=== PATIENT | male | born 1930 | race Caucasian/White ===

== ENCOUNTER 2019-05-05 19:28 | Emergency (ER) | payer MEDICARE ==
[~2019-05-05] VITALS: Ht 177.8 cm; Wt 72.6 kg
[2019-05-05 19:30] VITALS: BP 168/80
--- NOTE | 2019-05-05 19:30 | NUR ---
ED Nurse Note: pt brought in by ambulance from home for S/P fall about 40 min ago. pt has a bump and skin abrasion to right posterior head. pt also c/o buttocks pain.
--- NOTE | 2019-05-05 19:53 | Emergency Room Report ---
History of Present Illness General Chief Complaint: Multiple Trauma/Fall Source: Patient, Family Member Present Illness HPI Disclaimer: Please note that this report is being documented using DRAGON technology. This can lead to erroneous entry secondary to incorrect interpretation by the dictating instrument. HPI: 89-year-old male presents for evaluation of head injury after mechanical fall. Patient tripped over his slippers today falling backwards hitting the temporal portion of his head sustaining a hematoma. There is no loss of consciousness, denies dizziness, blurred vision, vomiting or seizure-like activity. He does not take blood thinners. He is complaining of some left- sided neck pain but does not limit his range of motion. Denies injury to the upper or lower extremities or torso. He has no other complaints at this time. Has not taken any medication prior to arrival. 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 There is a scalp hematoma over the right parietal region. No tenderness or soft tissue swelling over the facial bones. EOMI. PERRLA. No septal hematoma. No malocclusion CV: RRR. S1 and S2 normal. No murmur appreciated Resp: Normal work of breathing. No cough, wheezing or crackles appreciated Abd: Soft, nontender, nondistended Skin: Intact. No abrasions, laceration or rash over the exposed skin MSK: Normal tone and bulk. No obvious deformity. Moving all extremities. Ambulating without difficulty. Neuro: Awake and alert. Mentating appropriately. Sensation is intact to light touch over the dermatomes of the upper and lower extremities Spine: There is no tenderness, step-off or deformity in the cervical, thoracic or lumbosacral spine. There is moderate paraspinal tenderness cervical spine and tenderness over the left trapezius on the left side. Medical Decision Making Diagnostic Impression: Primary Impression: Closed head injury Additional Impressions: Scalp hematoma Cervical paraspinal muscle spasm ER Course 89-year-old male presents for evaluation after head injury from a mechanical fall. There is no loss consciousness, the patient's neuro exam is nonfocal, he has a hematoma over the right parietal region but is mentating appropriately with stable vital signs. Will obtain CT scan of the head and cervical spine. He is in no acute distress will give Tylenol for pain. CT/MRI/US Diagnostic Results CT/MRI/US Diagnostic Results : Impression Preliminary Findings Only See Final Report For Complete Findings CT HEAD Without Contrast: No comparison Impression: -Right posterior parietal scalp hematoma. -No acute intracranial abnormality. -Chronic senescent findings as follows: parenchymal volume loss, nonspecific white matter hypoattenuation likely secondary to chronic microvascular ischemia , cerebrovascular ASVD. Radiologist: Phan Khan MD Study ready at 20:24 and initial results transmitted at 21:05 Preliminary Findings Only See Final Report For Complete Findings CT C SPINE: No comparison Impression: -No acute cervical spine injury. -Cervical spine straightening, which could represent patient positioning or muscle spasm. -Multilevel age-related degenerative spine findings and osteopenia. Radiologist: Phan Khan MD Reevaluation Time: 21:07 Last Vital Signs Date Time Temp Pulse Resp B/P (MAP) Pulse Ox O2 Delivery O2 Flow Rate FiO2 05/05/19 19:23 98.6 60 18 180/80 (113) 99 Room Air Status: unchanged Reevaluation Impression No evidence of intracranial injury, fracture or dislocation on CT imaging. The patient has a soft tissue hematoma from his fall but otherwise sustained no major injuries. There is evidence of paraspinal muscle spasm which we will treat with lidocaine patches and NSAIDs. The patient is feeling well and has no complaints at this time. He will be discharged home to follow-up with his PMD. I discussed return precautions with patient and his was present at bedside as well as need for rapid follow-up. They understand and agree with this treatment plan will be discharged home. Disposition: HOME, SELF-CARE Condition: Stable Scripts Lidocaine Patch* (Lidoderm Patch*) 1 Each Adh..patch 1 PATCH TOPIC DAILY, #7 PATCH 0 Refills Patch(es) may remain in place for up to 12 hours in any 24-hour period. Prov: Corey Crump MD 05/05/19 Ibuprofen* (MOTRIN*) 600 Mg Tablet 600 MG ORAL Q8H PRN for For Pain, #30 TAB 0 Refills Prov: Corey Crump MD 05/05/19 Acetaminophen* (ACETAMINOPHEN 325MG TABLET*) 325 Mg Tablet 650 MG ORAL Q6H PRN for For Pain, #30 TAB Prov: Corey Crump MD 05/05/19 Corey Crump MD May 05, 2019 19:53
[2019-05-05] MEDS ORDERED: Acetaminophen 500mg (ES) tab ORAL ONE (20:00)
--- NOTE | 2019-05-05 20:03 | NUR ---
ED Nurse Note: pt is taken to CT by tech.
--- NOTE | 2019-05-05 20:18 | NUR ---
ED Nurse Note: back from CT
--- NOTE | 2019-05-05 21:06 | Diagnostic Imaging Report ---
Indications: Pain, status post fall Technique: Spiral acquisitions obtained through the brain. Angled axial and coronal 5 x 5 mm slices were reconstructed. Total dose length product 1304 mGycm. CTDI vol(s) 60 mGy. Dose reduction achieved using automated exposure control Comparison: None. Findings: There is marked age-related enlargement of the ventricles and extra axial CSF spaces. There is periventricular deep white matter low-attenuation consistent with chronic microvascular ischemic change. No acute intracranial hemorrhage or edema. No mass effect nor midline shift. Otherwise normal ham-white differentiation. Visualized orbits and sinuses are unremarkable. There is a small right high parietal scalp contusion. The mastoids are clear. Impression: Chronic and age-related changes Negative for acute intracranial bleed or mass effect Right high parietal scalp contusion This agrees with the preliminary interpretation provided overnight by [facility] service. The CT scanner at [facility] is accredited by the [employer] and the scans are performed using protocols designed to limit radiation exposure to as low as reasonably achievable to attain images of sufficient resolution adequate for diagnostic evaluation.
--- NOTE | 2019-05-05 21:08 | Diagnostic Imaging Report ---
Indication: Neck pain, status post fall Technique: Spiral acquisitions obtained through the cervical spine. No IV contrast utilized. Multiplanar reconstructions were generated. Total dose length product 149 mGycm. CTDIvol(s) 4 mGy. Dose reduction achieved using automated exposure control. Comparison: none Findings: No acute fractures. No dislocations. Bony alignment is normal. No prevertebral soft tissue swelling. Vertebral body heights are preserved. There is degenerative narrowing of the tear atlantoaxial joint. There is bilateral facet arthrosis at C3-4. There is mild bilateral neural foraminal stenosis. At C4-5, there is moderate to severe narrowing of the left neural foramen. There is bilateral facet arthrosis. C5-6, there is severe degenerative disc narrowing. There is moderate to severe bilateral neural foraminal stenosis. At C6-7, there is moderate to severe degenerative disc narrowing. There is moderate right, severe left neural foraminal stenosis. At C7-T1, there is mild degenerative disc narrowing. The neural foramina are preserved. No significant disc bulge or protrusion. The included extra spinal soft tissues are unremarkable. Impression: No acute bony trauma Degenerative changes, as detailed on a level by level basis above This agrees with the preliminary interpretation provided overnight by [facility]. The CT scanner at [facility] is accredited by the [employer] and the scans are performed using protocols designed to limit radiation exposure to as low as reasonably achievable to attain images of sufficient resolution adequate for diagnostic evaluation.
[2019-05-05] MEDS ORDERED: LIDODERM700 M1 TOPIC (21:10)
[2019-05-05] MEDS ORDERED: ACETAMINOPHEN325 M1 ORAL (21:10)
[2019-05-05] MEDS ORDERED: IBUPROFEN600 MG ORAL (21:10)
[2019-05-05 21:15] VITALS: BP 155/86
--- NOTE | 2019-05-05 21:15 | NUR ---
ER DISCHARGE NOTE: Patient is cleared to be discharged per ERMD, pt is aox4, on room air, with stable vital signs. pt was given dc instructions, pt was able to verbalize understanding, pt id band removed without complications. pt is able to ambulate with steady gait. pt took all belongings.
--- NOTE | 2019-05-05 21:30 | NUR ---
ED Nurse Note: PT PROVIDED W/ TAXI.
== END 2019-05-05 21:15 | disposition home or self-care (01) ==
LOC: EDBD 19:28 → EMR 20:00
DX: S09.90XA Unspecified injury of head, initial encounter (principal); S00.03XA Contusion of scalp, initial encounter; M62.838 Other muscle spasm; M54.2 Cervicalgia; Z90.49 Acquired absence of other specified parts of digestive tract; I25.10 Atherosclerotic heart disease of native coronary artery without angina pectoris; Z95.5 Presence of coronary angioplasty implant and graft; I10 Essential (primary) hypertension; W01.0XXA Fall on same level from slipping, tripping and stumbling without subsequent striking against object, initial encounter; Y92.9 Unspecified place or not applicable
CPT/HCPCS: 70450; 72125; 99284